=== PATIENT | male | born 1945 | race Caucasian/White ===

== ENCOUNTER 2022-11-19 19:51 | Emergency (ER) | payer MEDICARE ==
[2022-11-19 21:00] LABS: ESTIMATED GFR 47 mL/min (>60)
[2022-11-19 21:14] LABS: HEMOGLOBIN A1C 5.4 % (<5.7)
== END 2022-11-19 21:10 | disposition home or self-care (01) ==
LOC: FB.ED 19:51
DX: E16.2 Hypoglycemia, unspecified (principal)
CPT/HCPCS: 36415; 80048; 82947; 83036; 85025; 99282; 99284